=== PATIENT | female | born 1950 | race Caucasian/White ===

== ENCOUNTER → 2016-11-03 | Outpatient (CLI) | payer OTHER ==
[~2016-11-03] VITALS: Ht 172.7 cm; Wt 77.1 kg
[~2016-11-03] MED LIST: ARIPIPRAZOLE5 MG PO; B12INJ PO; CYMBALTA30 MG PO; DIOVAN 80 MG TA80 M1 PO; FENOFIBRATE200 MG PO; FLEXERIL PO; PRAMIPEXOLE D0.25 MG PO; SORINE 80 MG TA80 M1 PO; TRAMADOL HCL E200 MG PO; VITAMIN D2000 UNIT PO; XANAX 0.5 MG0.5 MG PO; XARELTO20 MG PO; ZANAFLEX4 MG PO
--- NOTE | ~2016-11-03 | HPC ---
[facility] [address] [place] [address] PAIN MANAGEMENT CONSULTATION Name: BRIAN CLAROS Room #: REG [facility] Brian.#: [id number] Admission: 11/03/16 Attend Phys: Rinku Kellogg MD Discharge: Date of : 54 Report #: [id number] THIS REPORT FOR: //name// CC: Rinku Fermin DATE OF SERVICE: 11/03/2016 CHIEF COMPLAINT: Back pain with pain that goes around side. 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 She has been referred to the Pain Clinic for pain in the thoracic area. She has undergone chiropractic treatment. She has had some pain since 2009. It has waxed and waned over the years. She had a nerve ablation in the thoracic area done in the past. She has also undergone acupuncture and cupping procedures. She has changed hospitals secondary to change in for insurance. She denies any trauma to her back. She does note that she has lost some high as a result of aging. She describes her discomfort as 4/10. It is constant, sharp, burning, aching and notes tenderness with pain radiating to the lateral sides of her back. Notes that her pain is alleviated with relaxation, rest, massage, medications, chiropractic treatment, heat and stretching. Pain is exacerbated with activities of daily living such as folding clothes, washing, doing dishes and working as a physical therapist. ALLERGIES: No known drug allergies. MEDICATIONS: Vitamin B12; vitamin D3; Flexeril 10 mg t.i.d. as needed; alprazolam 0.5 mg at bedtime p.r.n. anxiety/restlessness; valsartan 80 mg tablets, 160 mg daily, Cymbalta 30 mg, takes 90 mg daily; aripiprazole 5 mg p.r.n. anxiety; sotalol 80 mg b.i.d.; pramipexole p.r.n.; fenofibrate 200 mg daily; Xarelto 20 mg and tramadol 200 mg. PAST MEDICAL HISTORY: Asthma, hypertension, thyroid disease, colon problems, emotional problems, joint disease, cardiac arrhythmia and atrial fibrillation. PAST SURGICAL HISTORY: Breast augmentation and tonsillectomy. SOCIAL HISTORY: She is a physical therapist. She is working at this juncture. Denies use of tobacco, denies use of illicit drugs, 1-2 alcoholic beverages per week. REVIEW OF SYSTEMS: Questionnaire in the chart indicates generally good health, chronic sinus problems, shortness of breath, heart trouble, fatigue, weakness, varicose veins, nervousness, depression, thyroid disease and anemia. [address] [address] PAIN MANAGEMENT CONSULTATION Name: BRIAN CLAROS JO Room #: REG CLI Brian.#: [id number] Admission: 11/03/16 Attend Phys: Rinku Kellogg MD Discharge: Date of : 54 Report #: [id number] LABORATORY DATA: MRI of the thoracic spine dated 2015 reveals unchanged minimal anterolisthesis T2-T3, with a small central protrusion at this level. No significant neuroforaminal narrowing or spinal stenosis throughout the thoracic spine. Multifocal hematomas throughout the thoracic spine, the largest is in the superior right T8 and superior T11 vertebral bodies as well as within the left T12 body. Mild degenerative disk disease in the upper thoracic spine, ____ central disk protrusion at T9/T10, with slight lateral recess stenosis. Thoracic cord is normal in caliber and intensity. No significant change since 08/18/2014. PHYSICAL EXAMINATION: Blood pressure 129/77, pulse 72, respiratory rate 15, room air saturation is 99%. Height 5 feet 8 inches, weight 170 pounds, BMI is 25. The patient complains of back spasms in the upper thoracic area and the area of the rhomboids and inferior rhomboid area. She experiences a burning sensation and discomfort in the area of the bra line. She is tender to palpation in the muscles of the rhomboids, infraspinatus and posterior neck. She is not having pains radiating down into her hands or fingers. Good range of motion with her neck. IMPRESSION: 1. Thoracic back pain with some burning discomfort, which radiates from the midline of her back and the bra line out radially. 2. Anxiety. 3. Hypertension. 4. Cardiac arrhythmia, appears to be atrial fibrillation, is chronically anticoagulated. 5. History of thyroid disease. 6. Joint disease/arthritis. RECOMMENDATIONS: We discussed treatment options with the patient. We will continue with her current medical regimen. She will undergo evaluation for physical therapy for treatment of myofascial pain and thoracic radicular symptoms. She will call us if she has any problems. She will followup in the Pain Clinic in the near future. We would like to thank you for letting us participate in her care. We hope she continues to improve. By: [id number] Rinku Kellogg MD /
[2016-11-03 09:43] VITALS: BP 129/77
== END | disposition home or self-care (01) ==
LOC: PAIN 06:53
DX: M54.6 Pain in thoracic spine (principal); Z98.890 Other specified postprocedural states; Z79.899 Other long term (current) drug therapy; J45.909 Unspecified asthma, uncomplicated; I10 Essential (primary) hypertension; E03.9 Hypothyroidism, unspecified; M19.90 Unspecified osteoarthritis, unspecified site; I48.91 Unspecified atrial fibrillation; F41.9 Anxiety disorder, unspecified

== ENCOUNTER → 2017-04-06 | Outpatient (CLI) | payer OTHER ==
[~2017-04-06] VITALS: Ht 172.7 cm; Wt 73.5 kg
[~2017-04-06] MED LIST changes: +AMITRIPTYLINE H10 M3 PO; +DOXYCYCLINE HY100 M3 PO; +ROBAXIN 750 MG750 M1 PO; +TRAMADOL 50 MG50 MG PO
--- NOTE | ~2017-04-06 | HPC ---
[facility] [address] [address] PAIN MANAGEMENT CONSULTATION Name: BRIAN CLAROS Room #: REG [facility] MKarine.#: [id number] Admission: 04/06/17 Attend Phys: Rinku Kellogg MD Discharge: Date of : 54 Report #: [id number] THIS REPORT FOR: //name// CC: Rinku Fermin DATE OF SERVICE: 04/06/2017 FOLLOWUP COMPLAINT: Still having some pain radiating around back to the chest. FOLLOWUP HISTORY: The patient is a 66-year-old female who has been followed in the pain clinic because of thoracic pain. As you recall, 66-year-old female. She continued to have some pain and discomfort since about 2009. She has undergone chiropractic treatment. She has used conservative treatments of tramadol and Flexeril at this juncture. She is on chronic anticoagulation therapy. She does not take aspirin type medications because of this. 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 States that after a full day of work after about 6 hours. Pain in her chest, which wraps around the back into the anterior portion. Oftentimes is somewhat tired and feels like there is a cramping sensation. At the end of the day, she notes that the pain can rise to the level of a 7. This makes doing her job much more problematic. She continues to complain of some sharp, constant, burning discomfort, which radiates into the lateral sides on the left and right at approximately the T7-T8 area. She found that physical therapy was helpful. She continues to try to do the exercises as much as possible. She feels that the tramadol is no longer very effective. ALLERGIES: No known drug allergies. MEDICATIONS: Reviewed tramadol 50 mg 1-2 tablets q. 12 hours, vitamin B12, vitamin D3, Flexeril 10 mg 1 p.o. t.i.d. for spasms, alprazolam 0.5 mg at bedtime p.r.n. anxiety and restlessness, Darvon 160 mg, Cymbalta 30 mg, aripiprazole 5 mg p.r.n. anxiety, sotalol 80 mg b.i.d., pramipexole 0.25 mg p.r.n. restless leg, fenofibrate 200 mg, Xarelto 20 mg at dinner with food. PHYSICAL EXAMINATION: VITAL SIGNS: Blood pressure 123/78, pulse 65, respiratory rate 16, room air saturation 100, height 5 feet 8 inches, weight 162 pounds, BMI is 24. The patient does not smoke. GENERAL: Well-developed, well-nourished female, appears stated age, oriented and alert x 3, appropriate affect. HEENT: No head trauma. Eyes are nonicteric. ABDOMEN: Nontender. The patient does have some pain at about ____ line. Palpation in this area causes pain, which is approximately T7-T8 area which wraps around the anterior portion of her chest wall between T7-T9. [address] [address] PAIN MANAGEMENT CONSULTATION Name: BRIAN CLAROS Room #: REG TOMASA Goodson#: [id number] Admission: 04/06/17 Attend Phys: Rinku Kellogg MD Discharge: Date of : 54 Report #: [id number] strength felt to be 5/5 in major muscle groups. Lower extremity, 5/5 in major muscle groups. IMPRESSION: 1. Thoracic back pain with burning discomfort with radiation to the anterior thoracic area. Some pain problematic since 1999. 2. Anxiety. 3. Hypertension. 4. Cardiac arrhythmia. The patient is chronically anticoagulated for a history of atrial fibrillation. 5. History of thyroid disease. 6. Joint disease/arthritis. RECOMMENDATIONS: We discussed treatment options with the patient. At this juncture, we will try another muscle relaxant. The patient will try tizanidine 4 mg 1 p.o. t.i.d. to note its efficacy. She will also try Elavil at bedtime. We discussed the benefits of Elavil in chronic pain. This medication can be helpful in decreasing nerve types of pain, which she is complaining of shooting, burning discomfort. Oftentimes the patients taking this at night, find the area, we get a better night sleep. We oftentimes start at the lowest level low dose. Dosing from 10 to 150 mg can be prescribed. We will try this and the patient will call us if she has any problems with her medications. She has been given a script for Elavil 10 mg one initially and then she will titrate these as directed. She will call us if she has any problems with his medications. We will consider a thoracic epidural steroid injection. If she does not know any significant improvement with her current medications. She will then return to the pain clinic at which time after having stopped her Eliquis. We will proceed with a thoracic epidural steroid injection in the affected area. We would like to thank you for letting us participate in her care. We hope she continues to improve. <ELECTRONICALLY SIGNED> By: Rinku Kellogg MD 04/20/17 1332 [id number] Rinku Kellogg MD /PMT
[2017-04-06 11:06] VITALS: BP 123/78
== END ==
LOC: PAIN 10:59
DX: M54.6 Pain in thoracic spine (principal); F41.9 Anxiety disorder, unspecified; I10 Essential (primary) hypertension; I49.9 Cardiac arrhythmia, unspecified; Z86.39 Personal history of other endocrine, nutritional and metabolic disease

== ENCOUNTER → 2017-09-14 | Outpatient (CLI) | payer OTHER ==
[~2017-09-14] VITALS: Ht 172.7 cm; Wt 73.1 kg
--- NOTE | ~2017-09-14 | HPC ---
[facility] [address] [address] PAIN MANAGEMENT CONSULTATION Name: BRIAN CLAROS Room #: REG Keyona Torres.#: [id number] Admission: 09/14/17 Attend Phys: Rinku Kellogg MD Discharge: Date of : 54 Report #: [id number] THIS REPORT FOR: //name// CC: Rinku Gan DATE OF SERVICE: 09/14/2017 FOLLOWUP HISTORY: The patient is a 67-year-old female who has been seen in the pain clinic in the past because of problems with thoracic pain. She has noticed a worsening of her pain and discomfort at this juncture. It involves her mid back with radiation into both sides. She feels that an epidural steroid injection would be beneficial and would like to proceed with that at this juncture. She is anticoagulated and taking Xarelto 20 mg daily. She will stop taking her Xarelto and then returned to the pain clinic for evaluation and a thoracic epidural injection. She has pain in her midback with pain in both ribs as well as in the area of her scapula. Describes it as aching, worsens with movement of her arms, somewhat helpful with use of her medication and use of exercises and rest. It is in the area of her bra area. Feels that the amitriptyline continues to be helpful with her sleep. She is able to function well without problems using the Elavil. ALLERGIES: No known drug allergies. CURRENT MEDICATIONS: Vitamin B12, vitamin D3, Flexeril 10 mg t.i.d. as needed, alprazolam 0.5 mg at bedtime p.r.n., anxiety/restlessness, valsartan 80 mg, total of 160 mg daily; Cymbalta 30 mg, takes 90 mg daily, aripiprazole 5 mg p.r.n. anxiety, sotalol 80 mg b.i.d., pramipexole p.r.n., fenofibrate 200 mg daily, Xarelto 20 mg, and tramadol 200 mg. PAIN CLINIC ASSESSMENT: 1. Osteoarthritis/rheumatoid arthritis. The patient does have some arthritic changes in her joints. 2. Height 5 feet 8 inches, weight 161 pounds, BMI is 24. 3. Vital signs: Blood pressure 115/75, pulse 66, respiratory rate 14, room air saturation 100%. 4. Pain intensity 09/25. 5. Fall risk. The patient has not fallen in the last 3 months. 6. Blood thinner. The patient is taking Xarelto and will stop it over the next week to return to the pain clinic for an anticipated thoracic injection. 7. History of hypertension. The patient is being treated for hypertension. 8. Opioid therapy. The patient does take opioid medications on occasion. 9. Risk assessment tool, low for use of opioids. 10. Functional assessment tool, 35/70. 11. Recreational drug use. The patient denies use of recreational drugs. 12. Tobacco: The patient denies use of tobacco. 13. Alcohol. The patient drinks alcohol on occasion. [address] [address] PAIN MANAGEMENT CONSULTATION Name: BRIAN CLAROS Room #: REG CLKeyona Goodson#: [id number] Admission: 09/14/17 Attend Phys: Rinku Kellogg MD Discharge: Date of : 54 Report #: [id number] PHYSICAL EXAMINATION: GENERAL: The patient is a well-developed white female, appears her stated age. She is alert and oriented x 3. Her speech is fluent. HEENT: Normocephalic, atraumatic. Extraocular eye muscles intact. Sclerae nonicteric. Mucous membranes are moist. Hearing is within normal limits. NECK: Without adenopathy. Good range of motion. HEART: Regular rate S1 and S2, history of atrial fibrillation. LUNGS: Clear to auscultation without rhonchi or rales. ABDOMEN: Nontender. EXTREMITIES: Upper extremities strength is judged to be 5/5 for the major muscle groups in the upper extremities. Sensory within normal limits. MUSCULOSKELETAL: Without kyphosis, scoliosis or lordosis. The patient does have some mid back pain with spasms. Palpation in the area of her mid back at the area of bra strap does cause some reproduction and increase in her pain. IMPRESSION: 1. History of thoracic back pain with some burning component, improved with use of the amitriptyline, but still problematic at this juncture. 2. Anxiety. 3. Hypertension. 4. Cardiac arrhythmia. The patient is treated for chronic atrial fibrillation. 5. History of thyroid disease. 6. Joint disease/arthritis. RECOMMENDATIONS: We discussed treatment options with the patient. At this juncture, she feels that an epidural steroid injection at thoracic area might prove beneficial. She would like to have this performed in the near future. She will stop taking her Xarelto. She will return to the pain clinic at which time a thoracic epidural steroid injection will be performed. Risks and benefits of the procedure were discussed. The patient will be reminded of these possible complications prior to the performance of the thoracic epidural steroid injection. We would like to thank you for letting us participate in her care. We hope she continues to improve. By: [id number] Rinku Kellogg MD /nt
[2017-09-14 08:10] VITALS: BP 115/75
== END ==
LOC: PAIN 06:59
DX: M25.9 Joint disorder, unspecified (principal); I10 Essential (primary) hypertension; M54.6 Pain in thoracic spine; M19.90 Unspecified osteoarthritis, unspecified site; I49.9 Cardiac arrhythmia, unspecified; F41.9 Anxiety disorder, unspecified

== ENCOUNTER → 2017-10-05 | Outpatient (CLI) | payer OTHER ==
[~2017-10-05] VITALS: Ht 172.7 cm; Wt 72.1 kg
--- NOTE | ~2017-10-05 | HPC ---
[facility] [address] [place] [address] PAIN MANAGEMENT CONSULTATION Name: BRIAN CLAROS Room #: REG CL M.R.#: [id number] Admission: 10/05/17 Attend Phys: Rinku Kellogg MD Discharge: Date of : 54 Report #: [id number] THIS REPORT FOR: //name// CC: Rinku Gan DATE OF SERVICE: 10/05/2017 CHIEF COMPLAINT: The pain in the back has gotten worse. At the end of the day, I would like to go to the bed and lay down. He has some pain that is in the area of the brow line that radiates around mostly to the right side. I have had these injections in the past at [facility]. The patient's pain has gotten worse and at this juncture, I think I would like to proceed with an injection. I have not taken my Xarelto since 4 days ago. There is some worsening of pain with discomfort, particularly with certain activities. Amitriptyline is still helpful. I still do activities which were given to me by the physical therapist. ALLERGIES: No known drug allergies. MEDICATIONS: Vitamin B12, vitamin D3, Flexeril 10 mg t.i.d., alprazolam 0.5 mg at bedtime p.r.n. anxiety/restlessness, valsartan 80 mg, total 160 mg daily, Cymbalta 30 mg total 90 mg daily, aripiprazole 5 mg p.r.n. anxiety, sotalol 80 mg t.i.d., pramipexole p.r.n., fenofibrate 200 mg daily, Xarelto 20 mg, tramadol 200 mg. PAIN CLINIC ASSESSMENT: 1. History of osteoarthritis. The patient has osteoarthritic changes in her knees. History of rheumatoid arthritis. The patient is not being treated for rheumatoid arthritis. 2. Height 5 feet 8 inches, weight 159 pounds, BMI is 24.2. 3. Vital signs: Blood pressure 112/77, pulse 71, respiratory rate 16, room air saturation 98%. 4. Pain intensity 07/26. 5. Fall risk. The patient has not fallen in the last 3 months. 6. Blood thinner. The patient is on Xarelto and has stopped taking that medications 4 days ago. 7. History of hypertension. The patient is being treated for hypertension. 8. Opioid therapy greater than 6 weeks. The patient is not on an opioid medication on a regular basis. 9. Risk assessment tool, low for her use of opioids. 10. Functional assessment tool 35/70. 11. Recreational drug use. The patient denies use of recreational drugs. 12. Tobacco: The patient has never smoked. 13. Alcohol: The patient occasionally uses alcoholic beverages. [address] [address] PAIN MANAGEMENT CONSULTATION Name: BRIAN CLAROS Room #: REG CLI [facility]#: [id number] Admission: 10/05/17 Attend Phys: Rinku Kellogg MD Discharge: Date of : 54 Report #: [id number] PHYSICAL EXAMINATION: GENERAL: The patient is a well-developed white female, appears her stated age. She is alert and oriented x 3. Her speech is fluent. HEENT: Normocephalic, atraumatic. Extraocular eye muscles intact. Sclerae nonicteric. Mucous membranes are moist. Hearing is within normal limits. NECK: Without adenopathy. Good range of motion. Without JVD. HEART: Regular rate. S1, S2, has a history of atrial fibrillation. LUNGS: Clear to auscultation without rhonchi or rales. ABDOMEN: Nontender. EXTREMITIES: Judged to be 5/5 for the major muscle groups in the upper extremities. MUSCULOSKELETAL: Without kyphosis, scoliosis or lordosis. The patient does have some pain and discomfort in the mid portion of her back. Notes some muscle spasms. Has pain, which is located at approximately T10-T11 in the interspinous areas. States that the pain radiates to her right side of the chest when the pain is problematic. IMPRESSION: 1. History of thoracic pain with some burning components involving use of amitriptyline, which is helpful. 2. Anxiety. 3. Hypertension. 4. Cardiac arrhythmia. The patient is treated for chronic atrial fibrillation. 5. History of thyroid disease. 6. Joint disease/arthritis. RECOMMENDATIONS: We discussed treatment options with the patient. Risks and benefits of a thoracic epidural steroid injection were discussed. The patient has noticed a worsening of her pain. She had an epidural injection at [facility] in the past. It was found that was helpful. She has returned to the pain clinic with the intent of undergoing an epidural injection today. She has stopped her Xarelto and has not taken it over the last 4 days. She has a desire to proceed with an injection to help mitigate her pain and discomfort. PROCEDURE NOTE: We have discussed the procedure with the patient. Risks and benefits were reviewed. They include but are not limited to infection, increased muscle soreness, headache, bleeding, thoracic pain increase, nerve damage or weakness. The patient elects to proceed. The patient was placed in the prone position. A pillow was placed under her chest to bolster and improve her positioning. Fluoroscopy using anterior and posterior viewing were used to facilitate the injection. Her back had been sterilely prepped with Betadine. 0.25% bupivacaine was infiltrated. A 17-gauge Tuohy with loss of resistance technique was then used. After appropriate placement, 0.25% bupivacaine had been in infiltrated into the area. A total of 80 mg Depo-Medrol, 40 mg triamcinolone was injected. The patient tolerated the procedure well. There were no complications. She remained in the pain clinic for an appropriate [facility] [address] [place] [address] PAIN MANAGEMENT CONSULTATION Name: BRIAN CLAROS Room #: REG CLI [facility].#: [id number] Admission: 10/05/17 Attend Phys: Rinku Kellogg MD Discharge: Date of : 54 Report #: [id number] amount of time. She will follow up in the future as needed. We would like to thank you for letting us participate in her care. She continues to improve. By: [id number] Rinku Kellogg MD /[place]
[2017-10-05 08:53] VITALS: BP 112/77
== END | disposition home or self-care (01) ==
LOC: PAIN 09-21 09:34
DX: M54.6 Pain in thoracic spine (principal); G89.29 Other chronic pain; I10 Essential (primary) hypertension; F41.9 Anxiety disorder, unspecified; I48.2 Chronic atrial fibrillation; M19.90 Unspecified osteoarthritis, unspecified site; Z79.01 Long term (current) use of anticoagulants; Z86.39 Personal history of other endocrine, nutritional and metabolic disease; Z79.899 Other long term (current) drug therapy; Z98.890 Other specified postprocedural states

== ENCOUNTER → 2018-08-09 | Outpatient (CLI) | payer OTHER, MEDICARE ==
[~2018-08-09] VITALS: Ht 172.7 cm; Wt 72.8 kg
[~2018-08-09] MED LIST changes: +AMITRIPTYLINE H10 M1 PO; +BUPROPION HCL150 M1 PO; +LOSARTAN-HCTZ1 EAC2 PO; +METHOCARBAMOL500 M2 PO; +NEURONTIN 300300 M1 PO
--- NOTE | ~2018-08-09 | HPC ---
[facility] [place] [address] PAIN MANAGEMENT CONSULTATION Name: BRIAN CLAROS Room #: REG [facility] M.R.#: [id number] Admission: 08/09/18 ������������������ Attend Phys: Rinku Kellogg MD Discharge: ������������������ Date of : 54 Report #: [id number] THIS REPORT FOR: //name// CC: Rinku Gan DATE OF SERVICE: 08/09/2018 CHIEF COMPLAINT: Continued back pain. HISTORY: The patient is a 68-year-old female who has been seen in the pain clinic in the past because of chronic thoracic pain. States that she continues to have pain, which is problematic. She has seen another pain specialist. She has undergone some treatments to help with the pain. Overall, things continue to be problematic. She has had ablations, epidurals, Botox without significant long-term improvement. She is using Elavil. She finds that this medication has been somewhat helpful. She has undergone an MRI. This was in 01/2018. 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 There were no findings of acute bone edema or compression. Bulging disks were seen at T2-T3 and T12 through L1 without significant overall impingement of the spinal canal or foramen. The patient has returned to the pain clinic for evaluation. ALLERGIES: No known drug allergies. MEDICATIONS: Losartan/hydrochlorothiazide 100/12.5, bupropion SR 150 mg, methocarbamol 500 mg q.i.d., amitriptyline 30 mg at bedtime, methocarbamol 750 mg tablets at bedtime, vitamin D3 2000 units, Xanax 0.5 mg for anxiety, Cymbalta ____ 90 mg daily, sotalol 80 mg b.i.d., pramipexole 0.25 mg for restless leg, fenofibrate 200 mg, Xarelto 20 mg. PAIN CLINIC ASSESSMENT/PQRS: 1. The patient has osteoarthritic complaints in her knees. She is not being treated for rheumatoid arthritis. 2. Height 5 feet 8 inches, weight 160 pounds, BMI is 24. 3. Vital Signs: Blood pressure 110/77, pulse 85, respiratory rate 14, room air saturation 93%. 4. Pain intensity 7-8/10 with medication. 5. Fall risk. The patient has not fallen in the last 3 months. 6. Blood thinner. The patient is on Xarelto for history of atrial fibrillation. 7. Hypertension. The patient is being treated for hypertension. 8. Opioids greater than 6 weeks. The patient is not receiving opioid medications on a regular basis. 9. Risk assessment tool, low for opioid use. 10. Functional assessment tool 35/70. [address] [address] PAIN MANAGEMENT CONSULTATION Name: BRIAN CLAROS Room #: REG CLKeyona Goodson#: [id number] Admission: 08/09/18 ������������������ Attend Phys: Rinku Kellogg MD Discharge: ������������������ Date of : 54 Report #: [id number] 11. Recreational drug use. The patient denies use of recreational drugs. 12. Tobacco: The patient has never smoked. 13. Alcohol. The patient drinks 1-2 alcoholic beverages per week. PHYSICAL EXAMINATION: GENERAL: The patient is a well-developed, well-nourished white female. Appears her stated age. She is alert and oriented x 3. Her affect is appropriate. Speech is fluent. HEENT: Normocephalic, atraumatic. Extraocular eye muscles intact. Sclerae nonicteric. Mucous membranes are moist. NECK: Without adenopathy or JVD. MUSCULOSKELETAL: The patient has pain and discomfort in the mid portion of her back near the area of her bra line. Notes a tightening sensation at T7-T8. Notes that the pain improves with RN increases with any movement of her arms. She works as a physical therapist. She has pain that radiates to the rib area on both sides. Has some pain in the scapular area bilaterally. Notes pain improves with use of rest, exercise and lying flat. Upper extremity muscle strength is judged to be 5-/5 for the major muscle groups in the upper extremity. Lower extremity muscle strength is judged to be 5-/5 for the major muscle groups in the lower extremity. The patient is without significant scoliosis, kyphosis or lordosis. IMPRESSION: 1. Chronic thoracic pain. 2. Hypertension. 3. Thyroid disease. 4. Colon problems. 5. Emotional problems. 6. Joint disease/arthritis. RECOMMENDATIONS: We discussed the treatment options with the patient. The patient has found that use of Elavil has been beneficial. She has had a number of other procedures done, which have not been helpful half-way. It was felt that the Botox injections may have exacerbated her pain somewhat. She is not sure that the radiofrequency lesioning provided long-term benefit. She does not recall using gabapentin. We explained the use of gabapentin and a pain situation. This medication has been helpful with certain types of pain. I think it would be reasonable for her to start at a low level and titrated up. Hopefully, she will find that this is helpful. Continue to increase the Elavil medication. She is only on 30 mg per day. We had a discussion about use of a nerve dorsal column stimulator. I do not feel that this modality would be helpful at this juncture. We discussed the use of a baclofen pump. We explained to the patient that baclofen pumps are oftentimes use in patients have problems with spasticity. We have discussed the use of a morphine pump. We explained to the patient that high dose opioid medications sometimes cause systemic problems. When that is the case, one might consider an infusion pump. [facility] [address] [place] [address] PAIN MANAGEMENT CONSULTATION Name: BRIAN CLAROS Room #: REG TOM[facility]A [facility]KoffiMaxKoffi#: [id number] Admission: 08/09/18 ������������������ Attend Phys: Rinku Kellogg MD Discharge: ������������������ Date of : 54 Report #: [id number] The patient is not at that level. I do not think at this juncture, it would be a good option. We will have her try gabapentin. We will increase the dose as tolerated. We explained to the patient that sometimes dosages of 1800 mg of gabapentin over 4-6 weeks before one would give up on this medication. A script for her medications has been written. She will follow up in the future. We would like to thank you for letting us participate in her care. We hope she continues to improve. ��������������������������������������������� ���������������������������������������� By: ��������������������������������������������� [id number] Rinku Kellogg MD /nt
[2018-08-09 13:22] VITALS: BP 110/77
--- NOTE | 2018-08-09 13:31 | NUR ---
Pain Clinic Assessment: 1. History of Osteoarthritis: KNEES History of Rheumatoid Arthritis: Not Applicable 2. Height: 5 ft. 8 in. 172.7 cm. Weight: 160.6 lb. oz. 72.848 kg. Patient's BMI: 24.4 3. Vital Signs: BP: 110/77 Pulse: 85 Resp: 14 Temp: 02 Sat: 93 ECG Mon: 4. Pain Intensity: 7-8 W/MEDS 5. Fall Risk: Dizziness: N Needs help standing or walking: N Fallen in the last 3 months: N Fall risk comments: 6. Patient on Blood Thinner: XARELTO 7. History of Hypertension: Y 8. Opioid Therapy greater than 6 weeks: Y Opiate Contract Signed: 9. Risk Assessment Tool Provided: low 10. Functional Assessment Tool: 35 11. Recreational Drug Use: Never Drug Type: Tobacco Use: Never Smoker Tobacco Type: Amount or Packs/day: How Many Years: Alcohol Use: Yes Frequency: Weekly Quant: 1-2
== END ==
LOC: PAIN 06:53
DX: M17.0 Bilateral primary osteoarthritis of knee (principal); I10 Essential (primary) hypertension; M54.6 Pain in thoracic spine; G89.29 Other chronic pain; Z79.899 Other long term (current) drug therapy; Z79.891 Long term (current) use of opiate analgesic; Z79.01 Long term (current) use of anticoagulants